=== PATIENT | female | born 1965 | race Caucasian/White ===

== ENCOUNTER → 2023-04-15 17:11 | Outpatient (REF) | payer BC, SELFPAY | LOC: MRI 17:11 | PROVIDERS: ATTENDING PHYSICIAN Nurse Practitioner Family; FAMILY PHYSICIAN Internal Medicine | DX: R90.89 Other abnormal findings on diagnostic imaging of central nervous system (principal) | CPT/HCPCS: 72156; A9575 ==

== ENCOUNTER → 2024-04-12 10:37 | Outpatient (REF) | payer MEDICARE, BC, SELFPAY | LOC: PAVMRI 10:37 | PROVIDERS: ATTENDING PHYSICIAN Emergency Medicine | DX: R10.10 Upper abdominal pain, unspecified (principal); K83.4 Spasm of sphincter of Oddi; Z98.890 Other specified postprocedural states; R19.5 Other fecal abnormalities; R11.0 Nausea | CPT/HCPCS: 74183; A9575 ==

== ENCOUNTER 2024-08-02 06:20 | Day surgery (SDC) | payer MEDICARE, BC, SELFPAY | END 2024-08-02 16:00 | disposition home or self-care (01) | LOC: GI 06:20 | PROVIDERS: ATTENDING PHYSICIAN Specialist | DX: Z12.11 Encounter for screening for malignant neoplasm of colon (principal); K57.30 Diverticulosis of large intestine without perforation or abscess without bleeding; R13.10 Dysphagia, unspecified; R63.4 Abnormal weight loss; R68.81 Early satiety; R10.13 Epigastric pain; K31.89 Other diseases of stomach and duodenum; D12.5 Benign neoplasm of sigmoid colon; K62.1 Rectal polyp; Z86.0101 Personal history of adenomatous and serrated colon polyps | CPT/HCPCS: 45380; 43239; 88305; 88342 ==

== ENCOUNTER → 2024-10-25 07:00 | Outpatient (REF) | payer MEDICARE, BC, SELFPAY | LOC: PAVMRI 07:00 | PROVIDERS: ATTENDING PHYSICIAN Physician Assistant Medical; FAMILY PHYSICIAN Internal Medicine | DX: M54.16 Radiculopathy, lumbar region (principal) | CPT/HCPCS: 72148 ==

== ENCOUNTER → 2025-01-01 13:40 | Outpatient (REF) | payer MEDICARE, BC, SELFPAY | LOC: WDC 13:40 | PROVIDERS: ATTENDING PHYSICIAN Internal Medicine | DX: Z12.31 Encounter for screening mammogram for malignant neoplasm of breast (principal) | CPT/HCPCS: 77063; 77067 ==

== ENCOUNTER → 2025-01-11 11:19 | Outpatient (REF) | payer MEDICARE, BC, SELFPAY | LOC: PAVMRI 11:19 | PROVIDERS: ATTENDING PHYSICIAN Psychiatry & Neurology Neurology; FAMILY PHYSICIAN Emergency Medicine; REFERRING PHYSICIAN Specialist | DX: G35.B0 Primary progressive multiple sclerosis, unspecified (principal) | CPT/HCPCS: 70553; 72156; 72157; A9575 ==

== ENCOUNTER → 2025-01-11 13:49 | Outpatient (REF) | payer MEDICARE, BC, SELFPAY | LOC: RCS 13:49 | PROVIDERS: ATTENDING PHYSICIAN Internal Medicine Cardiovascular Disease; FAMILY PHYSICIAN Internal Medicine | DX: R06.02 Shortness of breath (principal) | CPT/HCPCS: 93306 ==

== ENCOUNTER → 2025-01-24 11:21 | Outpatient (REF) | payer MEDICARE, BC, SELFPAY | LOC: HWRCS 11:21 | PROVIDERS: ATTENDING PHYSICIAN Internal Medicine Cardiovascular Disease; FAMILY PHYSICIAN Internal Medicine | DX: R06.02 Shortness of breath (principal) | CPT/HCPCS: 78452; 93017; A9500; J2785 ==